=== PATIENT | female | born 1990 ===

== ENCOUNTER 2019-04-01 15:49 | Emergency (ER) | payer OTHER ==
[2019-04-01] MEDS ORDERED: Benzocaine 20% Topical Spray UD MUCMEM ONE (16:12)
[2019-04-01] MEDS ORDERED: Lidocaine 2% Viscous Solution 15 ML Cup PO ONE (16:12)
--- NOTE | 2019-04-01 16:13 | EDM.PDOC ---
ED HPI GENERAL MEDICAL PROBLEM - General Chief Complaint: ENT Problem Stated Complaint: TOOTHACHE AND LEFT NECK PAIN Time Seen by Provider: 04/01/19 16:12 Source of Information: Reports: Patient History Limitations: Reports: No Limitations - History of Present Illness INITIAL COMMENTS - FREE TEXT/NARRATIVE: HISTORY AND PHYSICAL: History of present illness: Patient is a 29-year-old female presents to the ED with complaint of dental pain. Patient states that it started 2 days ago, she saw a dentist and was put on clindamycin. She states she took 2 doses of it but broke out in hives so she stopped taking it. She states the pain is getting worse and she has noticed more swelling. She states it is painful to eat or drink but does otherwise does not have difficulty swallowing. She denies fevers or chills. Review of systems: As per history of present illness and below otherwise all systems reviewed and negative. Past medical history: As per history of present illness and as reviewed below otherwise noncontributory. Surgical history: As per history of present illness and as reviewed below otherwise noncontributory. Social history: No reported history of drug or alcohol abuse. Family history: As per history of present illness and as reviewed below otherwise noncontributory. Physical exam: General: Patient sitting comfortably in no acute distress and nontoxic appearing HEENT: Pain to percussion of tooth #18 with mild swelling of the adjacent gums. There is mild swelling to the left lower jaw and a tender anterior left cervical lymph node. Atraumatic, normocephalic, pupils reactive, negative for conjunctival pallor or scleral icterus, mucous membranes moist, throat clear, neck supple, nontender, trachea midline. No meningeal signs. Lungs: Clear to auscultation, breath sounds equal bilaterally, chest nontender. Heart: S1S2, regular, negative for clicks, rubs, or overt murmur. Abdomen: Soft, nondistended, nontender. Negative for masses or hepatosplenomegaly. Negative for costovertebral tenderness. No rigidity, rebound , guarding. Pelvis: Stable nontender. Genitourinary: Deferred. Rectal: Deferred. Extremities: Atraumatic, negative for cords or calf pain. Neurovascular unremarkable. Neuro: Awake, alert, oriented. Cranial nerves II through XII unremarkable. Cerebellum unremarkable. Motor and sensory unremarkable throughout. Exam nonfocal. Notes: Diagnostics: none Therapeutics: Dental balls Toradol 60mg IM Prescriptions: Levaquin Metronidazole Impression: Dentalgia, dental infection Plan: Take antibiotics as instructed. Alternate Tylenol and Motrin as needed and use dental balls as discussed. Follow-up with primary care provider Return to ED as needed as discussed Definitive disposition and diagnosis as appropriate pending reevaluation and review of above. Left side of face Pain Score (Numeric/FACES): 10 - Related Data Allergies Allergy/AdvReac Type Severity Reaction Status Date / Time Penicillins Allergy Cannot Verified 04/01/19 16:09 Remember Home Meds: Home Meds Levofloxacin [Levaquin] 750 mg PO DAILY #10 tablet 04/01/19 [Rx] metroNIDAZOLE [Metronidazole] 250 mg PO TID 10 Days #30 tablet 04/01/19 [Rx] Past Medical History - Past Health History Medical/Surgical History: Denies Medical/Surgical History Social & Family History - Family History Family Medical History: Noncontributory - Tobacco Use Smoking Status *Q: Current Every Day Smoker Years of Tobacco use: 10 Packs/Tins Daily: 0.5 - Recreational Drug Use Recreational Drug Use: No ED ROS ENT - Review of Systems Review Of Systems: ROS reveals no pertinent complaints other than HPI. ED EXAM, ENT - Physical Exam Exam: See Below (see dictation) Course - Vital Signs Last Recorded V/S: Last Vital Signs Temp 98.3 F 04/01/19 16:08 Pulse 77 04/01/19 16:08 Resp 16 04/01/19 16:08 BP 141/105 H 04/01/19 16:08 Pulse Ox 98 04/01/19 16:08 - Orders/Labs/Meds Meds: Medications Discontinued Medications Generic Name Dose Route Start Last Admin Trade Name Freq PRN Reason Stop Dose Admin Benzocaine 2 each 04/01/19 16:12 04/01/19 16:25 Hurricaine One 20% MUCMEM 04/01/19 16:13 2 each ONETIME ONE Administration Ketorolac Tromethamine 60 mg 04/01/19 16:20 04/01/19 16:25 Toradol IM 04/01/19 16:21 60 mg ONETIME ONE Administration Lidocaine HCl 15 ml 04/01/19 16:12 04/01/19 16:25 Xylocaine 2% Viscous PO 04/01/19 16:13 15 ml ONETIME ONE Administration Departure - Departure Time of Disposition: 16:25 Disposition: Home, Self-Care 01 Condition: Good Clinical Impression: Dental infection, Dentalgia - Discharge Information Prescriptions: Levofloxacin [Levaquin] 750 mg PO DAILY #10 tablet metroNIDAZOLE [Metronidazole] 250 mg PO TID 10 Days #30 tablet Referrals: PCP,Unknown [Primary Care Provider] - Forms: ED Department Discharge Additional Instructions: The following information is given to patients seen in the emergency department who are being discharged to home. This information is to outline your options for follow-up care. We provide all patients seen in our emergency department with a follow-up referral. The need for follow-up, as well as the timing and circumstances, are variable depending upon the specifics of your emergency department visit. If you don't have a primary care physician on staff, we will provide you with a referral. We always advise you to contact your personal physician following an emergency department visit to inform them of the circumstance of the visit and for follow-up with them and/or the need for any referrals to a consulting specialist. The emergency department will also refer you to a specialist when appropriate. This referral assures that you have the opportunity for follow-up care with a specialist. All of these measure are taken in an effort to provide you with optimal care, which includes your follow-up. Under all circumstances we always encourage you to contact your private physician who remains a resource for coordinating your care. When calling for follow-up care, please make the office aware that this follow-up is from your recent emergency room visit. If for any reason you are refused follow-up, please contact the [facility] Emergency Department at and asked to speak to the emergency department charge nurse. [facility] [address] [place] [phone] [id number] Take antibiotics as instructed. Alternate Tylenol and Motrin as needed and use dental balls as discussed. Follow-up with primary care provider Return to ED as needed as discussed
[2019-04-01] MEDS ORDERED: Ketorolac 60 MG/2 ML SDV IM ONE (16:20)
[2019-04-01 17:22] VITALS: BP 129/78
== END 2019-04-01 16:47 | disposition home or self-care (01) ==
LOC: MW.ED 15:49
DX: K04.7 Periapical abscess without sinus (principal); F17.210 Nicotine dependence, cigarettes, uncomplicated; Z88.0 Allergy status to penicillin
CPT/HCPCS: 96372; 99282; A9270; J1885

== ENCOUNTER 2019-04-02 10:02 | Emergency (ER) | payer OTHER ==
[2019-04-02] MEDS ORDERED: Ketorolac 60 MG/2 ML SDV IM ONE (10:18)
--- NOTE | 2019-04-02 10:20 | EDM.PDOC ---
ED HPI GENERAL MEDICAL PROBLEM - General Chief Complaint: ENT Problem Stated Complaint: TOOTH ABSCESS Time Seen by Provider: 04/02/19 10:18 Source of Information: Reports: Patient History Limitations: Reports: No Limitations - History of Present Illness INITIAL COMMENTS - FREE TEXT/NARRATIVE: HISTORY AND PHYSICAL: History of present illness: Patient is a 29-year-old female presents to the ED with complaint of dental pain. Patient was seen in the ED by me yesterday. She states the toradol shot helped but has been having severe pain since it wore off. She is scheduled to see a dentist in 2 weeks. She states she can't eat and feels nauseous. She is able to take her antibiotics. Denies fevers, chills, difficulty swallowing other than due to pain, difficulty breathing, trismus. Review of systems: As per history of present illness and below otherwise all systems reviewed and negative. Past medical history: As per history of present illness and as reviewed below otherwise noncontributory. Surgical history: As per history of present illness and as reviewed below otherwise noncontributory. Social history: No reported history of drug or alcohol abuse. Family history: As per history of present illness and as reviewed below otherwise noncontributory. Physical exam: General: Patient sitting comfortably in no acute distress and nontoxic appearing HEENT: Mild swelling to the left lower jaw, tender anterior left cervical lymph node. Pain to percussion of tooth #18 with minimal adjacent gum swelling. Atraumatic, normocephalic, pupils reactive, negative for conjunctival pallor or scleral icterus, mucous membranes moist, throat clear, neck supple, nontender, trachea midline. No meningeal signs. Lungs: Clear to auscultation, breath sounds equal bilaterally, chest nontender. Heart: S1S2, regular, negative for clicks, rubs, or overt murmur. Abdomen: Soft, nondistended, nontender. Negative for masses or hepatosplenomegaly. Negative for costovertebral tenderness. No rigidity, rebound , guarding. Pelvis: Stable nontender. Genitourinary: Deferred. Rectal: Deferred. Extremities: Atraumatic, negative for cords or calf pain. Neurovascular unremarkable. Neuro: Awake, alert, oriented. Cranial nerves II through XII unremarkable. Cerebellum unremarkable. Motor and sensory unremarkable throughout. Exam nonfocal. Notes: Diagnostics: none Therapeutics: Toradol 60mg IM Prescriptions: Tramadol 50mg (#12) Impression: Dentalgia, dental infection Plan: Continue antibiotics as prescribed. Alternate tylenol and motrin as needed, you may take tramadol as needed for severe pain. Do not take while driving as it may make you drowsy. Follow up with dentist Return to ED as needed as discussed Definitive disposition and diagnosis as appropriate pending reevaluation and review of above. Left Tooth/Teeth Pain Score (Numeric/FACES): 20 - Related Data Allergies Allergy/AdvReac Type Severity Reaction Status Date / Time Penicillins Allergy Cannot Verified 04/02/19 10:11 Remember Home Meds: Home Meds Levofloxacin [Levaquin] 750 mg PO DAILY #10 tablet 04/01/19 [Rx] metroNIDAZOLE [Metronidazole] 250 mg PO TID 10 Days #30 tablet 04/01/19 [Rx] Past Medical History - Past Health History Medical/Surgical History: Denies Medical/Surgical History - Infectious Disease History Infectious Disease History: Reports: Chicken Pox Social & Family History - Family History Family Medical History: Noncontributory - Tobacco Use Smoking Status *Q: Current Every Day Smoker Years of Tobacco use: 10 Packs/Tins Daily: 0.5 - Recreational Drug Use Recreational Drug Use: No ED ROS ENT - Review of Systems Review Of Systems: ROS reveals no pertinent complaints other than HPI. ED EXAM, ENT - Physical Exam Exam: See Below (see dictation) Course - Vital Signs Last Recorded V/S: Last Vital Signs Temp 96.7 F 04/02/19 10:09 Pulse 81 04/02/19 10:09 Resp 18 04/02/19 10:09 BP 149/61 H 04/02/19 10:09 Pulse Ox 96 04/02/19 10:09 - Orders/Labs/Meds Meds: Medications Discontinued Medications Generic Name Dose Route Start Last Admin Trade Name Freq PRN Reason Stop Dose Admin Ketorolac Tromethamine 60 mg 04/02/19 10:18 Toradol IM 04/02/19 10:19 ONETIME ONE Departure - Departure Time of Disposition: 10:20 Disposition: Home, Self-Care 01 Condition: Good Clinical Impression: Dentalgia, Dental infection - Discharge Information Referrals: PCP,Unknown [Primary Care Provider] - Forms: ED Department Discharge Additional Instructions: The following information is given to patients seen in the emergency department who are being discharged to home. This information is to outline your options for follow-up care. We provide all patients seen in our emergency department with a follow-up referral. The need for follow-up, as well as the timing and circumstances, are variable depending upon the specifics of your emergency department visit. If you don't have a primary care physician on staff, we will provide you with a referral. We always advise you to contact your personal physician following an emergency department visit to inform them of the circumstance of the visit and for follow-up with them and/or the need for any referrals to a consulting specialist. The emergency department will also refer you to a specialist when appropriate. This referral assures that you have the opportunity for follow-up care with a specialist. All of these measure are taken in an effort to provide you with optimal care, which includes your follow-up. Under all circumstances we always encourage you to contact your private physician who remains a resource for coordinating your care. When calling for follow-up care, please make the office aware that this follow-up is from your recent emergency room visit. If for any reason you are refused follow-up, please contact the [facility] Emergency Department at and asked to speak to the emergency department charge nurse. [facility] Primary Care [address] [place] [id number] [facility] [address] [place] [id number] Continue antibiotics as prescribed. Alternate tylenol and motrin as needed, you may take tramadol as needed for severe pain. Do not take while driving as it may make you drowsy. Follow up with dentist Return to ED as needed as discussed
[2019-04-02 11:10] VITALS: BP 146/90
== END 2019-04-02 10:43 | disposition home or self-care (01) ==
LOC: MW.ED 10:02
DX: K04.7 Periapical abscess without sinus (principal); F17.210 Nicotine dependence, cigarettes, uncomplicated; Z88.0 Allergy status to penicillin
CPT/HCPCS: 96372; 99283; J1885

== ENCOUNTER 2019-06-24 14:24 | Emergency (ER) | payer BC, OTHER ==
[2019-06-24] MEDS ORDERED: Ketorolac 60 MG/2 ML SDV IM ONE (14:50)
--- NOTE | 2019-06-24 14:55 | EDM.PDOC ---
ED HPI GENERAL MEDICAL PROBLEM - General Chief Complaint: Upper Extremity Injury/Pain Time Seen by Provider: 06/24/19 14:50 - History of Present Illness INITIAL COMMENTS - FREE TEXT/NARRATIVE: HISTORY AND PHYSICAL: History of present illness: Patient is a 29-year-old female presents to the ED with complaint of neck pain. She states she has been having pain to the right side of her neck for the past 5 days. She denies injury or trauma but thinks she slept on it wrong. She states she occasionally gets a shooting pain in to her right shoulder. She denies chest pain, shortness of breath, headache or any other complaints at this time. She is taking tylenol and ibuprofen without relief of symptoms. Review of systems: As per history of present illness and below otherwise all systems reviewed and negative. Past medical history: As per history of present illness and as reviewed below otherwise noncontributory. Surgical history: As per history of present illness and as reviewed below otherwise noncontributory. Social history: No reported history of drug or alcohol abuse. Family history: As per history of present illness and as reviewed below otherwise noncontributory. Physical exam: General: Patient sitting comfortably in no acute distress and nontoxic appearing HEENT: Atraumatic, normocephalic, pupils reactive, negative for conjunctival pallor or scleral icterus, mucous membranes moist, throat clear, neck supple, nontender, trachea midline. No meningeal signs. Lungs: Clear to auscultation, breath sounds equal bilaterally, chest nontender. Heart: S1S2, regular, negative for clicks, rubs, or overt murmur. Abdomen: Soft, nondistended, nontender. Negative for masses or hepatosplenomegaly. Negative for costovertebral tenderness. No rigidity, rebound , guarding. Pelvis: Stable nontender. Genitourinary: Deferred. Rectal: Deferred. Spine: No vertebral tenderness to palpation. Right cervical paraspinal tenderness. Extremities: Atraumatic, negative for cords or calf pain. Neurovascular unremarkable. Neuro: Awake, alert, oriented. Cranial nerves II through XII unremarkable. Cerebellum unremarkable. Motor and sensory unremarkable throughout. Exam nonfocal. Notes: Diagnostics: [] Therapeutics: 60mg Toradol IM Prescriptions: Flexeril Impression: Neck pain Plan: Alternate tylenol and ibuprofen as needed You may take flexeril as needed as discussed, do not take while driving as it may make you drowsy Follow up with primary care provider Return to ED as needed as discussed Definitive disposition and diagnosis as appropriate pending reevaluation and review of above. right neck Pain Score (Numeric/FACES): 8 - Related Data Allergies Allergy/AdvReac Type Severity Reaction Status Date / Time Penicillins Allergy Cannot Verified 06/24/19 14:43 Remember Home Meds: Home Meds Cyclobenzaprine [Flexeril] 10 mg PO BID #15 tab 06/24/19 [Rx] Past Medical History - Past Health History Medical/Surgical History: Denies Medical/Surgical History HEENT History: Reports: None Cardiovascular History: Reports: None Respiratory History: Reports: None Gastrointestinal History: Reports: None Genitourinary History: Reports: None [employer] History: Reports: None Musculoskeletal History: Reports: None Neurological History: Reports: None Psychiatric History: Reports: None Endocrine/Metabolic History: Reports: None Hematologic History: Reports: None Immunologic History: Reports: None Oncologic (Cancer) History: Reports: None Dermatologic History: Reports: None - Infectious Disease History Infectious Disease History: Reports: Chicken Pox - Past Surgical History Head Surgeries/Procedures: Reports: None HEENT Surgical History: Reports: None Cardiovascular Surgical History: Reports: None Respiratory Surgical History: Reports: None GI Surgical History: Reports: None Female Surgical History: Reports: None Endocrine Surgical History: Reports: None Neurological Surgical History: Reports: None Musculoskeletal Surgical History: Reports: None Oncologic Surgical History: Reports: None Dermatological Surgical History: Reports: None Social & Family History - Family History Family Medical History: Noncontributory - Tobacco Use Smoking Status *Q: Current Every Day Smoker Years of Tobacco use: 8 Packs/Tins Daily: 0.5 Second Hand Smoke Exposure: No - Caffeine Use Caffeine Use: Reports: Coffee - Recreational Drug Use Recreational Drug Use: No Review of Systems - Review of Systems Review Of Systems: ROS reveals no pertinent complaints other than HPI. ED EXAM, GENERAL - Physical Exam Exam: See Below (see dictation) Course - Vital Signs Last Recorded V/S: Last Vital Signs Temp 98.5 F 06/24/19 15:17 Pulse 91 06/24/19 15:17 Resp 17 06/24/19 15:17 BP 121/73 06/24/19 15:17 Pulse Ox 98 06/24/19 15:17 - Orders/Labs/Meds Meds: Medications Discontinued Medications Generic Name Dose Route Start Last Admin Trade Name Tami PRN Reason Stop Dose Admin Ketorolac Tromethamine 60 mg 06/24/19 14:50 06/24/19 14:55 Toradol IM 06/24/19 14:51 60 mg ONETIME ONE Administration Departure - Departure Time of Disposition: 14:53 Disposition: Home, Self-Care 01 Condition: Good Clinical Impression: Neck pain - Discharge Information Prescriptions: Cyclobenzaprine [Flexeril] 10 mg PO BID #15 tab Instructions: Muscle Pain, Adult Referrals: PCP,None [Primary Care Provider] - Forms: ED Department Discharge Additional Instructions: The following information is given to patients seen in the emergency department who are being discharged to home. This information is to outline your options for follow-up care. We provide all patients seen in our emergency department with a follow-up referral. The need for follow-up, as well as the timing and circumstances, are variable depending upon the specifics of your emergency department visit. If you don't have a primary care physician on staff, we will provide you with a referral. We always advise you to contact your personal physician following an emergency department visit to inform them of the circumstance of the visit and for follow-up with them and/or the need for any referrals to a consulting specialist. The emergency department will also refer you to a specialist when appropriate. This referral assures that you have the opportunity for follow-up care with a specialist. All of these measure are taken in an effort to provide you with optimal care, which includes your follow-up. Under all circumstances we always encourage you to contact your private physician who remains a resource for coordinating your care. When calling for follow-up care, please make the office aware that this follow-up is from your recent emergency room visit. If for any reason you are refused follow-up, please contact the [facility] Emergency Department at and asked to speak to the emergency department charge nurse. [facility] Primary [facility] [address] [place] [phone] [address] Alternate tylenol and ibuprofen as needed You may take flexeril as needed as discussed, do not take while driving as it may make you drowsy Follow up with primary care provider Return to ED as needed as discussed
[2019-06-24 15:19] VITALS: BP 121/73; PULSE 91
== END 2019-06-24 15:17 | disposition home or self-care (01) ==
LOC: MW.ED 14:24
DX: M54.2 Cervicalgia (principal); F17.210 Nicotine dependence, cigarettes, uncomplicated; Z88.0 Allergy status to penicillin
CPT/HCPCS: 96372; 99283; J1885